=== PATIENT | female | born 1955 ===

== ENCOUNTER 2021-07-10 19:52 | Inpatient (IN) | payer MEDICARE, OTHER ==
[~2021-07-10] VITALS: Ht 165.1 cm; Wt 63.5 kg
[2021-07-10] MEDS ORDERED: ALBU8.5H8 IH (20:04)
[2021-07-10] MEDS ORDERED: FURO-152 PO (20:04)
[2021-07-10] MEDS ORDERED: HYDR50CA PO (20:04)
[2021-07-10] MEDS ORDERED: PALI78DI IM (20:04)
[2021-07-10] MEDS ORDERED: GABA-532 PO (20:13)
[2021-07-10] MEDS ORDERED: QUET50TA PO (20:13)
[2021-07-10] MEDS ORDERED: ZOLP5TAB2 PO (20:13)
--- NOTE | 2021-07-10 22:52 | NUR ---
Pt. admitted to MHU (Room 303 MHU overflow), under care of Dr. Mckenna/Altaf. Dx: Psychosis. 5150 hold dts Belongs List completed
[2021-07-10 23:00] VITALS: BP 134/77
--- NOTE | 2021-07-10 23:00 | NUR ---
RECEIVED PATIENT VIA GURNEY FROM ER. PATIENT IS ALERT TO SELF, CUBAN SPEAKING, VERY MINIMAL SAMI. WHEN TRANSLATED, PATIENT ONLY KNOWS NAME AND AGE, UNABLE TO SPECIFY WHEREABOUTS OR DAY. NEEDS REINFORCEMENT. VERY PLEASANT WHEN APPROACHED. C/O MILD PAIN IN BILATERAL LOWER LEGS. VSS UPON ADMISSION. NO RESP.DISTRESS NOTED. ORIENTED PATIENT TO ROOM AND CALL LIGHT. DENIES ANY THOUGHTS OR FEELINGS OF S.I., SITTER AT BEDSIDE FOR SAFETY. BED ALARM ON. ALL NEEDS ATTENDED. WILL CONTINUE TO MONITOR AND ASSESS.
[2021-07-10] MEDS ORDERED: MAGNESIUM HYDROXIDE 30 ML LIQUID UDC PO PRN (23:45)
[2021-07-10] MEDS ORDERED: BLOOD SUGAR DIAGNOSTIC 1 EACH STRIP VI ONE (23:45)
--- NOTE | 2021-07-11 00:05 | NUR ---
PATIENTS BLOOD SUGAR TAKEN ORDERED, 136, POST-MEAL.
[2021-07-11] MEDS: ACETAMINOPHEN 325 MG TABLET PO PRN ×2 (00:16→10:25)
--- NOTE | 2021-07-11 01:00 | NUR ---
RECEIVED NOTIFICATION THAT MENTAL HEALTH CHARGE SPOKE WITH DR. GLEASON IN REGARDS TO PATIENTS STATUS. PER DR. GLEASON, PATIENT IS "VOLUNTARY." WATER/WASTEWATER ENGINEER AND UTILITY ACCOUNTS DIRECTOR NOTIFIED.
--- NOTE | 2021-07-11 01:15 | NUR ---
PATIENT AWAKE IN BED, VERBALLY AGREED TO VOLUNTARY STATUS PER DR. GLEASON. SENIOR SQL DATABASE DEVELOPER AT BEDSIDE AND NOTIFIED OF CHANGE.
[2021-07-11] MEDS: LORAZEPAM 1 MG TABLET PO PRN (02:56)
[2021-07-11] MEDS ORDERED: BLOOD SUGAR DIAGNOSTIC 1 EACH STRIP VI ONE (04:15)
[2021-07-11 07:11] LABS: BILIRUBIN,TOTAL 0.3 mg/dL (0.2-1.0); CREATININE 0.9 mg/dL (0.6-1.3); POTASSIUM 4.4 mmol/L (3.5-5.1); TOTAL PROTEIN, SERUM 6.9 g/dL (6.4-8.2)
[2021-07-11 08:06] VITALS: BP 116/70
[2021-07-11] MEDS: risperiDONE 1 MG TABLET PO SCH ×2 (10:25→17:31)
[2021-07-11] MEDS: FLUOXETINE HCL 10 MG CAPSULE PO SCH (11:39)
[2021-07-11] MEDS: MAG HYDROX/AL HYDROX/SIMETH 30 ML LIQUID UDC PO PRN (13:54)
[2021-07-11] MEDS: GABAPENTIN 100 MG CAPSULE PO SCH ×2 (14:03→17:30)
--- NOTE | 2021-07-11 14:52 | NUR ---
Firearms Report: Customer Trainer completed and submitted a [employer] firearms report for 5150 harm to self certifications. A copy of report has been placed in patient chart.
[2021-07-11 16:00] VITALS: BP 115/81
--- NOTE | 2021-07-11 16:13 | NUR ---
HORACIO Initial Discharge Note Pt currently resides at [facility] located at [address] [place] [id number] ). HORACIO contacted [facility] and spoke to medical records administrator, Abi Coreas who stated that pt is welcome back when she is ready for discharge. HORACIO will continue to work with pt, family, and MD to ensure a safe and proper discharge plan.
--- NOTE | 2021-07-11 16:14 | NUR ---
SW Family Contact SW spoke with patient's daughter, Joy Ardon and discussed treatment and discharge plan. Joy Ardon provided collateral information (see sw assessment).
[2021-07-11] MEDS ORDERED: ALBUTEROL SULFATE 8 GM HFA.AER.AD IH PRN (16:15)
--- NOTE | 2021-07-11 16:15 | NUR ---
Patient is alert and oriented. Patient is anxious, guarded, and withdrawn, but she is cooperative with staff. Patient is endorsing suicidal ideation with no concrete plan and no intent, patient is able to contract for safety. Patient states she has a daughter that is involved and supportive of her. Patient denies homicidal ideation, denies hallucinations. Patient is medication compliant, no adverse reaction noted. Patient is able to ambulate independently and perform self care and ADL's. Patient provided with activities as a coping mechanisms for stress and is coloring/drawing which she states is effective at controlling stress. Patient provided with education about impulse control.
--- NOTE | 2021-07-11 16:20 | NUR ---
SW Facility Contact SW contacted [facility] [id number], [place] [phone] and spoke to cyber security administrator Abi Coreas who stated the pt is welcome back to the facility upon discharge. Pt's psychotherapist, Melly Dey is located at [facility] in [place] on [address]
[2021-07-11] MEDS ORDERED: ALBUTEROL SULFATE 2.5 MG/3 ML NEBU NEB PRN (16:45)
[2021-07-11 21:50] VITALS: BP 109/62
[2021-07-12 07:30] VITALS: BP 112/70
[2021-07-12 07:53] LABS: BILIRUBIN,TOTAL 0.3 mg/dL (0.2-1.0); CREATININE 0.8 mg/dL (0.6-1.3); POTASSIUM 4.3 mmol/L (3.5-5.1); TOTAL PROTEIN, SERUM 6.8 g/dL (6.4-8.2)
[2021-07-12] MEDS: GABAPENTIN 100 MG CAPSULE PO SCH ×3 (09:42→16:57)
[2021-07-12] MEDS: risperiDONE 1 MG TABLET PO SCH ×2 (09:42→16:57)
[2021-07-12] MEDS: FUROSEMIDE 20 MG TABLET PO SCH (09:43)
[2021-07-12] MEDS: FLUOXETINE HCL 10 MG CAPSULE PO SCH (09:43)
[2021-07-12] MEDS: MAG HYDROX/AL HYDROX/SIMETH 30 ML LIQUID UDC PO PRN (15:27)
[2021-07-12] MEDS: ACETAMINOPHEN 325 MG TABLET PO PRN ×2 (15:27→20:13)
--- NOTE | 2021-07-12 15:29 | NUR ---
GPS: PT COMPLAINT OF STOMACH UPSET AND PAIN. PT GIVEN MAALOX AND TYLENOL 650MG PO. TOLERATED WELL. PT CHATS WITH OTHER PT AND GETTING ALONG WITH. WILL MONITOR PT
--- NOTE | 2021-07-12 20:09 | NUR ---
Received ambulating in the hallway , complaining of pain to the roght lower leg ,noted a skin tear /abrasion to the right anterior part of the right lowet leg.
[2021-07-12 20:10] VITALS: BP 109/62
--- NOTE | 2021-07-13 06:09 | NUR ---
patient awake and complaints of pain to the right lower leg abrasion area. aggreed to have pictures taken , tylenol 650 mg po given for pain
--- NOTE | 2021-07-13 06:12 | NUR ---
ordered wound care for the abrasions to the right elbow and right anterior lower leg which is painful and reddened.
[2021-07-13] MEDS: ACETAMINOPHEN 325 MG TABLET PO PRN ×2 (06:38→20:30)
[2021-07-13 07:30] VITALS: BP 125/79
[2021-07-13] MEDS: FLUOXETINE HCL 10 MG CAPSULE PO SCH (08:34)
[2021-07-13] MEDS: risperiDONE 1 MG TABLET PO SCH ×2 (08:35→16:36)
[2021-07-13] MEDS: GABAPENTIN 100 MG CAPSULE PO SCH ×3 (08:35→16:36)
[2021-07-13] MEDS: FUROSEMIDE 20 MG TABLET PO SCH (08:35)
[2021-07-13 16:40] VITALS: BP 124/82
--- NOTE | 2021-07-13 18:04 | NUR ---
Pt. is A/OX3 to person, place, environment. Ambulates independently. Compliant with medication. Fall and safety precaution maintained. Frequent checks done. All due meds given. All needs attended. Will endorse to the next shift for continuity of care.
[2021-07-13 20:09] VITALS: BP 126/75
[2021-07-13] MEDS: LORAZEPAM 1 MG TABLET PO PRN (20:30)
--- NOTE | 2021-07-14 03:25 | NUR ---
Received patient at the start of the shift endorsing to the staff the other patients needs. The patient is intrusive with her peers. When using a pot operator for Bengali, the patient denied ever having SI. Her speech was tangental and thought were racing. Patient was not able to explain what got her here and clearly had delusional thinking. Patient verbalized being " Kicked by the man in the next room and got mad. So , I ran out of there into the street but never tried to kill myself. I was playing around". This editorial writer was unable to engage in any meaningful conversation despite having a pot operator. The patient is needy, cooperative with medications, but noted to be hoarding items in her room. Eventually, the patient fell asleep. Right leg noted to have a scab on the front of the knight and what looks like the start of cellulitis. The area is red and warm, with skin tight. A wound consult has been ordered and this editorial writer will take a photo when the patient wakes up. Safety stratiges are in place. Continuing to monitor for SI and behavior escalation.
[2021-07-14] MEDS: LORAZEPAM 1 MG TABLET PO PRN ×2 (04:11→20:02)
[2021-07-14] MEDS: ACETAMINOPHEN 325 MG TABLET PO PRN ×2 (04:11→15:26)
--- NOTE | 2021-07-14 06:06 | NUR ---
GPS NOTE : A Photo of the patients right leg was taken by the day shift, but there was / is no ink in the printer. Will endorse to on coming shift for follow up.
[2021-07-14 07:30] VITALS: BP 129/74
[2021-07-14] MEDS: risperiDONE 1 MG TABLET PO SCH (08:59)
[2021-07-14] MEDS: GABAPENTIN 100 MG CAPSULE PO SCH ×3 (08:59→17:22)
[2021-07-14] MEDS: FLUOXETINE HCL 10 MG CAPSULE PO SCH (08:59)
[2021-07-14] MEDS: FUROSEMIDE 20 MG TABLET PO SCH (08:59)
--- NOTE | 2021-07-14 11:51 | NUR ---
WOUND CARE CONSULT: PT SEEN FOR RT LOWER LEG DRY ABRASION/SCAB AND RT ELBOW ABRASION. NO DRAINAGE, TENDERNESS OR ERYTHEMA NOTED TO RT LOWER LEG BUT RT ELBOW HAS SCANT PINK DRAINAGE. RECOMMENDATIONS MADE FOR SKIN PROTECTION AND WOUND CARE. DISCUSSED WITH NURSING STAFF. MD IN AGREEMENT WITH PLAN OF CARE.
[2021-07-14] MEDS: NEOMY/BACITRAC/POLYMI OINT 28.35 GM TUBE TOP SCH (14:00)
--- NOTE | 2021-07-14 15:38 | NUR ---
HORACIO PC Hearing: Patient had 5250 probable cause hearing today and it was upheld for grave disability.
[2021-07-14 16:46] VITALS: BP 108/75
[2021-07-14] MEDS: risperiDONE 2 MG TABLET PO SCH (17:22)
[2021-07-14 20:37] VITALS: BP 127/78
[2021-07-14] MEDS: ZOLPIDEM 5 MG TABLET PO PRN (21:43)
[2021-07-15 07:30] VITALS: BP 131/79
[2021-07-15] MEDS: GABAPENTIN 100 MG CAPSULE PO SCH ×3 (08:56→16:15)
[2021-07-15] MEDS: FUROSEMIDE 20 MG TABLET PO SCH (08:56)
[2021-07-15] MEDS: risperiDONE 2 MG TABLET PO SCH ×2 (08:56→16:15)
[2021-07-15] MEDS: FLUOXETINE HCL 10 MG CAPSULE PO SCH (08:56)
[2021-07-15] MEDS: NEOMY/BACITRAC/POLYMI OINT 28.35 GM TUBE TOP SCH (08:57)
--- NOTE | 2021-07-15 13:42 | NUR ---
GPS: Nursing Notes: Destructive Behavior to Self: Patient is awake and responding to her name, compliant with her medications, needy at times, gets easily anxious when redirected, impaired judgment, forgetful at times, need minimal prompting to participate in therapeutic groups, argumentative at times, but following staff directions, anxious affect, overly demanding at times, unable to formulate a viable plan for self care, denies SI, verbally shai for safety, believes that she is getting better, continue with treatment plan.
[2021-07-15 15:42] VITALS: BP 129/72
[2021-07-15] MEDS: MAG HYDROX/AL HYDROX/SIMETH 30 ML LIQUID UDC PO PRN (17:17)
[2021-07-15 20:00] VITALS: BP 144/86
[2021-07-15] MEDS: LORAZEPAM 1 MG TABLET PO PRN (20:23)
[2021-07-15] MEDS: ACETAMINOPHEN 325 MG TABLET PO PRN (20:24)
--- NOTE | 2021-07-16 03:11 | NUR ---
Received the patient at the start of the shift, reporting to this keno writer/runner all about the other patients needs etc.. Patient is intrusive and continues to go into other rooms , sit down and offer help? Environmental Science Program Director used redirection and distraction often during the shift. This patient had requests for things , multiple times, plus ruminating and worrying about the laundry, appearing to be anxious. Medication provided along with reassurance. Continuing to monitor and provide for the patients needs. No SI noted and safety stratiges are in place.
[2021-07-16 07:30] VITALS: BP 97/52
[2021-07-16] MEDS: NEOMY/BACITRAC/POLYMI OINT 28.35 GM TUBE TOP SCH (08:59)
[2021-07-16] MEDS: GABAPENTIN 100 MG CAPSULE PO SCH ×3 (08:59→16:45)
[2021-07-16] MEDS: risperiDONE 2 MG TABLET PO SCH ×2 (08:59→16:45)
[2021-07-16] MEDS: FLUOXETINE HCL 10 MG CAPSULE PO SCH (08:59)
[2021-07-16] MEDS: FUROSEMIDE 20 MG TABLET PO SCH (08:59)
[2021-07-16 15:08] VITALS: BP 90/53
[2021-07-16 20:00] VITALS: BP 109/71
[2021-07-16] MEDS: LORAZEPAM 1 MG TABLET PO PRN (20:27)
[2021-07-16] MEDS: ACETAMINOPHEN 325 MG TABLET PO PRN (20:27)
[2021-07-17 07:30] VITALS: BP 129/81
[2021-07-17] MEDS: FLUOXETINE HCL 10 MG CAPSULE PO SCH (08:47)
[2021-07-17] MEDS: GABAPENTIN 100 MG CAPSULE PO SCH ×3 (08:47→16:54)
[2021-07-17] MEDS: risperiDONE 2 MG TABLET PO SCH ×2 (08:47→16:54)
[2021-07-17] MEDS: FUROSEMIDE 20 MG TABLET PO SCH (08:47)
[2021-07-17] MEDS: NEOMY/BACITRAC/POLYMI OINT 28.35 GM TUBE TOP SCH (08:48)
[2021-07-17] MEDS: ACETAMINOPHEN 325 MG TABLET PO PRN (10:25)
[2021-07-17 15:17] VITALS: BP 104/80
[2021-07-17 20:08] VITALS: BP 118/78
[2021-07-18 07:30] VITALS: BP 112/70
[2021-07-18] MEDS: FLUOXETINE HCL 10 MG CAPSULE PO SCH (08:37)
[2021-07-18] MEDS: FUROSEMIDE 20 MG TABLET PO SCH (08:37)
[2021-07-18] MEDS: GABAPENTIN 100 MG CAPSULE PO SCH ×3 (08:37→16:58)
[2021-07-18] MEDS: risperiDONE 2 MG TABLET PO SCH ×2 (08:37→16:58)
[2021-07-18] MEDS: NEOMY/BACITRAC/POLYMI OINT 28.35 GM TUBE TOP SCH (08:37)
[2021-07-18 15:07] VITALS: BP 113/72
[2021-07-18 19:41] VITALS: BP 133/68
[2021-07-18] MEDS: ACETAMINOPHEN 325 MG TABLET PO PRN (21:21)
[2021-07-18] MEDS: LORAZEPAM 1 MG TABLET PO PRN (21:21)
[2021-07-18] MEDS: ZOLPIDEM 5 MG TABLET PO PRN (22:56)
[2021-07-19 07:48] VITALS: BP 107/64
[2021-07-19] MEDS: NEOMY/BACITRAC/POLYMI OINT 28.35 GM TUBE TOP SCH (08:06)
[2021-07-19] MEDS: FLUOXETINE HCL 10 MG CAPSULE PO SCH (08:06)
[2021-07-19] MEDS: risperiDONE 2 MG TABLET PO SCH ×2 (08:06→16:37)
[2021-07-19] MEDS: FUROSEMIDE 20 MG TABLET PO SCH (08:06)
[2021-07-19] MEDS: GABAPENTIN 100 MG CAPSULE PO SCH ×3 (08:06→16:37)
[2021-07-19 13:59] LABS: HEMATOCRIT 38.2 % (31.2-41.9); MEAN CORPUSCULAR HEMOGLOBIN 32.2 uug (24.7-32.8); MEAN CORPUSCULAR VOLUME 97.2 fL (75.5-95.3); PLATELET COUNT (AUTO) 249 K/uL (179-408)
[2021-07-19 14:14] LABS: BILIRUBIN,TOTAL 0.2 mg/dL (0.2-1.0); CREATININE 0.8 mg/dL (0.6-1.3); PHOSPHOROUS 4.9 mg/dL (2.5-4.9); POTASSIUM 4.5 mmol/L (3.5-5.1); TOTAL PROTEIN, SERUM 8.1 g/dL (6.4-8.2)
--- NOTE | 2021-07-19 15:55 | NUR ---
Received a patient in her room. A/OX 3 to person, place. Pt. affect is cooperative, demanding, withdrawn. Compliant with medications. Ambulates independently. Continent. Emotional support provided. Fall and safety precautions implemented.
[2021-07-19 16:48] VITALS: BP 115/72
[2021-07-19 20:58] VITALS: BP 141/76
[2021-07-20 07:30] VITALS: BP 130/71
--- NOTE | 2021-07-20 08:56 | NUR ---
HORACIO Discharge Note [place] [address] ([phone]) via Ambulance at 11 AM. HORACIO spoke with Abi Coreas, financial systems administrator at the facility, who states they are ready to accept the patient today. Pt is aware and agreeable with discharge plans. Pt is alert and oriented x2, is unable to plan for self-care at this time; however, is willing to accept care at [facility]. Pt denies any suicidal or homicidal ideation. Pt will follow-up with her therapist Melly Dey ([phone]) with [facility] [place] [address]. Pt presents with calm mood and congruent affect.
[2021-07-20] MEDS: risperiDONE 2 MG TABLET PO SCH (09:02)
[2021-07-20] MEDS: GABAPENTIN 100 MG CAPSULE PO SCH ×2 (09:02→13:01)
[2021-07-20] MEDS: FUROSEMIDE 20 MG TABLET PO SCH (09:02)
[2021-07-20] MEDS: FLUOXETINE HCL 10 MG CAPSULE PO SCH (09:02)
[2021-07-20] MEDS: NEOMY/BACITRAC/POLYMI OINT 28.35 GM TUBE TOP SCH (09:03)
--- NOTE | 2021-07-20 13:15 | NUR ---
Gps/Label Coder- Discharged planning in progress, denies S.I. no H.I. patient well informed of her discharge plan.
--- NOTE | 2021-07-20 13:34 | NUR ---
Gps/Goggles Assembler- [facility] was called, report was given to Yamilex HINDS. All belongings given back to patient. Discharged in good spirit with no new complaints noted.
== END 2021-07-20 13:35 | DRG 885 ==
LOC: ER 19:52 → GPSOV3 22:32 → GPS 07-11 07:00
PROVIDERS: ADMIT Psychiatry & Neurology Psychiatry; ATTEND Nurse Practitioner Acute Care
DX: F25.1 Schizoaffective disorder, depressive type (principal); E44.0 Moderate protein-calorie malnutrition; R60.0 Localized edema; J45.909 Unspecified asthma, uncomplicated; F41.9 Anxiety disorder, unspecified; Z20.822 Contact with and (suspected) exposure to COVID-19; E88.09 Other disorders of plasma-protein metabolism, not elsewhere classified; G62.9 Polyneuropathy, unspecified; R60.9 Edema, unspecified; R73.03 Prediabetes; Z91.51 Personal history of suicidal behavior; Z68.23 Body mass index [BMI] 23.0-23.9, adult
CPT/HCPCS: 36415; 84100; 85025; 97161; A4663